=== PATIENT | female | born 1990 | race Caucasian/White ===

== ENCOUNTER 2018-01-28 04:10 | Emergency (ER) | payer OTHER ==
[2018-01-28] MEDS ORDERED: ALBUTEROL NEBULIZED 2.5 MG/3 ML INHALATION STA (04:39)
[2018-01-28] MEDS ORDERED: METOCLOPRAMIDE 5 MG/ML 2 ML VIAL IVP STA (04:39)
[2018-01-28] MEDS ORDERED: ACETAMINOPHEN TAB 500 MG TAB PO STA (04:39)
[2018-01-28] MEDS ORDERED: SODIUM CHLORIDE 0.9% 1,000 ML IV ONE (04:40)
--- NOTE | 2018-01-28 04:55 | ED ---
Fever HPI - General Chief Complaint: Fever Stated Complaint: Fever/Feels Sick Time Seen by Provider: 01/28/18 04:29 Source: patient, RN notes reviewed, old records reviewed Mode of arrival: ambulatory Limitations: no limitations - History of Present Illness Initial Comments: 28-year-old female presents response due to complaint of cough and congestion. She also has had diarrhea and vomiting episodes. She is currently 32 weeks . Patient states that she has no vaginal bleeding. No abdominal pain. Patient reports that she has had had no history of sick contacts that she is aware. Patient states she does frequently visits the soup kitchen. Patient states she may have picked something up there. She reports she's had a significant cough over the past 2 days. - Related Data Previous Rx's Medication Instructions Recorded Ciprofloxacin HCl [Cipro] 500 mg PO Q12HR #20 day 01/22/15 Phenazopyridine [Pyridium] 100 mg PO TID 3 Days day 01/22/15 traMADol HCl [Ultram] 50 mg PO Q6H PRN #40 tab 01/22/15 Acetaminophen Tab [Tylenol Tab] 500 mg PO Q6H #20 tablet 01/28/18 Albuterol Inhaler [Ventolin Hfa 1 - 2 puff INHALATION RT-Q6H PRN 01/28/18 Inhaler] #1 inhaler Amoxicillin 500 mg PO Q12HR #14 cap 01/28/18 Metoclopramide HCl [Reglan] 10 mg PO ACHS #15 tablet 01/28/18 diphenhydrAMINE [Benadryl] 25 mg PO BID PRN #20 capsule 01/28/18 Allergies Allergy/AdvReac Type Severity Reaction Status Date / Time No Known Allergies Allergy Verified 01/28/18 04:15 Review of Systems ROS Statement: Those systems with pertinent positive or pertinent negative responses have been documented in the HPI. ROS Other: All systems not noted in ROS Statement are negative. Past Medical History Past Medical History: No Reported History History of Any Multi-Drug Resistant Organisms: None Reported Past Surgical History: Appendectomy Past Psychological History: No Psychological Hx Reported Smoking Status: Current every day smoker Past Alcohol Use History: Occasional Past Drug Use History: None Reported General Exam - General Exam Comments Initial Comments: 28-year-old female. No significant distress. Limitations: no limitations General appearance: alert, in no apparent distress Head exam: Present: atraumatic, normocephalic, normal inspection Eye exam: Present: normal appearance, PERRL, EOMI. Absent: scleral icterus, conjunctival injection, periorbital swelling ENT exam: Present: normal exam, mucous membranes moist Neck exam: Present: normal inspection. Absent: tenderness, meningismus, lymphadenopathy Respiratory exam: Present: normal lung sounds bilaterally, wheezes. Absent: respiratory distress, rales, rhonchi, stridor Cardiovascular Exam: Present: regular rate, normal rhythm, normal heart sounds. Absent: systolic murmur, diastolic murmur, rubs, gallop, clicks Back exam: Present: normal inspection Neurological exam: Present: alert, oriented X3, CN II-XII intact Psychiatric exam: Present: normal affect, normal mood Course Vital Signs 01/28/18 01/28/18 01/28/18 04:13 04:58 05:11 Temperature 97.5 F L Pulse Rate 94 92 96 Respiratory 20 Rate Blood Pressure 100/62 O2 Sat by Pulse 97 Oximetry Medical Decision Making - Medical Decision Making 28-year-old female, currently 32 weeks presents return today which went cough congestion vomiting episodes. Patient has some oozing exam. Given 2 albuterol treatment. She does have some improvement. I discussed doing a chest x-ray to the for pneumonia. Patient's that she was only do this to exposed baby to radiation. She's had no vomiting episodes and emergency department. Given Tylenol. Reglan and IV fluids due to the vomiting. She does have some mild leukocyte ptosis most likely a reflection of . Urinalysis was negative. She panel unremarkable. This time Patient will be discharged with amoxicillin for upper respiratory infection, Tylenol, albuterol inhaler and Benadryl. Discussed following up with primary care physician. - Lab Data Result diagrams: 01/28/18 04:55 01/28/18 04:55 Lab Results 01/28/18 01/28/18 01/28/18 Range/Units 04:55 04:55 04:55 WBC 15.2 H (3.8-10.6) k/uL RBC 3.56 L (3.80-5.40) m/uL Hgb 11.3 L (11.4-16.0) gm/dL Hct 33.0 L (34.0-46.0) % MCV 92.7 (80.0-100.0) fL MCH 31.7 (25.0-35.0) pg MCHC 34.2 (31.0-37.0) g/dL RDW 12.8 (11.5-15.5) % Plt Count 209 (150-450) k/uL Neutrophils % 82 % Lymphocytes % 10 % Monocytes % 6 % Eosinophils % 1 % Basophils % 0 % Neutrophils # 12.4 H (1.3-7.7) k/uL Lymphocytes # 1.5 (1.0-4.8) k/uL Monocytes # 0.9 (0-1.0) k/uL Eosinophils # 0.2 (0-0.7) k/uL Basophils # 0.0 (0-0.2) k/uL Sodium 136 L (137-145) mmol/L Potassium 4.5 (3.5-5.1) mmol/L Chloride 108 H (98-107) mmol/L Carbon Dioxide 23 (22-30) mmol/L Anion Gap 5 mmol/L BUN 12 (7-17) mg/dL Creatinine 0.55 (0.52-1.04) mg/dL Est GFR (CKD-EPI)AfAm >90 (>60 ml/min/1.73 sqM) Est GFR (CKD-EPI)NonAf >90 (>60 ml/min/1.73 sqM) Glucose 83 (74-99) mg/dL Calcium 8.7 (8.4-10.2) mg/dL Urine Color Yellow Urine Appearance Clear (Clear) Urine pH 6.0 (5.0-8.0) Ur Specific [place] 1.020 (1.001-1.035) Urine Protein Negative (Negative) Urine Glucose (UA) Negative (Negative) Urine Ketones Negative (Negative) Urine Blood Negative (Negative) Urine Nitrite Negative (Negative) Urine Bilirubin Negative (Negative) Urine Urobilinogen <2.0 (<2.0) mg/dL Ur Leukocyte Esterase Small H (Negative) Urine RBC 1 (0-5) /hpf Urine WBC 2 (0-5) /hpf Ur Squamous Epith Cells 5 H (0-4) /hpf Urine Mucus Rare H (None) /hpf Disposition Clinical Impression: Nausea & vomiting, URI (upper respiratory infection), Disposition: HOME SELF-CARE Condition: Good Instructions: Fever in Adults (ED) Additional Instructions: Patient is to take medications as prescribed. Follow-up with primary care physician. Return to the emergency department if any alarming signs or symptoms occur. Prescriptions: Acetaminophen Tab [Tylenol Tab] 500 mg PO Q6H #20 tablet Albuterol Inhaler [Ventolin Hfa Inhaler] 1 - 2 puff INHALATION RT-Q6H PRN #1 inhaler PRN Reason: Shortness Of Breath Amoxicillin 500 mg PO Q12HR #14 cap diphenhydrAMINE [Benadryl] 25 mg PO BID PRN #20 capsule PRN Reason: Congestion Metoclopramide HCl [Reglan] 10 mg PO ACHS #15 tablet Is patient prescribed a controlled substance at d/c from ED?: No Referrals: None,Stated [Primary Care Provider] - 1-2 days Time of Disposition: 05:44
[2018-01-28 05:20] LABS: Appearance,Urine Clear (Clear); Bilirubin,Urine Negative (Negative); Blood,Urine Negative (Negative); Color,Urine Yellow; Glucose,Urine (UA) Negative (Negative); Ketones,Urine Negative (Negative); Leukocyte Esterase,Urine Small (Negative); Mucus,Urine Rare /hpf; Nitrite,Urine Negative (Negative); Protein,Urine Negative (Negative); RBC,Urine 1 /hpf (0-5); Squamous Epithelial Cell,Urine 5 /hpf (0-4); Urobilinogen,Urine <2.0 mg/dL (<2.0); WBC,Urine 2 /hpf (0-5)
[2018-01-28 05:26] LABS: Anion Gap 5 mmol/L; Blood Urea Nitrogen 12 mg/dL (7-17); Calcium 8.7 mg/dL (8.4-10.2); Carbon Dioxide 23 mmol/L (22-30); Chloride 108 mmol/L (98-107); Glucose 83 mg/dL (74-99); Potassium 4.5 mmol/L (3.5-5.1); Sodium 136 mmol/L (137-145)
[2018-01-28 05:37] LABS: Basophils % (A) 0 %; Eosinophils # (A) 0.2 k/uL (0-0.7); Eosinophils % (A) 1 %; HGB 11.3 gm/dL (11.4-16.0); Lymphocytes # (A) 1.5 k/uL (1.0-4.8); Lymphocytes % (A) 10 %; MCH 31.7 pg (25.0-35.0); MCHC 34.2 g/dL (31.0-37.0); MCV 92.7 fL (80.0-100.0); Mean Platelet Volume 7.7; Monocytes # (A) 0.9 k/uL (0-1.0); Monocytes % (A) 6 %; Neutrophils # (A) 12.4 k/uL (1.3-7.7); Neutrophils % (A) 82 %; Platelet Count 209 k/uL (150-450); RBC 3.56 m/uL (3.80-5.40); RDW 12.8 % (11.5-15.5); WBC 15.2 k/uL (3.8-10.6)
[2018-01-28 06:03] VITALS: BP 107/54; PULSE 87; RESP 16; TEMP 98
== END 2018-01-28 06:04 | disposition home or self-care (01) ==
LOC: EC 04:10
DX: O99.513 Diseases of the respiratory system complicating pregnancy, third trimester (principal); J06.9 Acute upper respiratory infection, unspecified; O21.9 Vomiting of pregnancy, unspecified; O99.113 Other diseases of the blood and blood-forming organs and certain disorders involving the immune mechanism complicating pregnancy, third trimester; D72.829 Elevated white blood cell count, unspecified; O99.89 Other specified diseases and conditions complicating pregnancy, childbirth and the puerperium; R19.7 Diarrhea, unspecified; O99.333 Smoking (tobacco) complicating pregnancy, third trimester; F17.200 Nicotine dependence, unspecified, uncomplicated; Z90.49 Acquired absence of other specified parts of digestive tract; Z3A.32 32 weeks gestation of pregnancy
CPT/HCPCS: 36415; 94640; 80048; 85025; 81001; 99284; 96374; 96361; J2765

== ENCOUNTER 2021-02-15 12:00 | Emergency (ER) | payer OTHER ==
[2021-02-15 12:04] VITALS: TEMP 97.8
[2021-02-15] MEDS ORDERED: MORPHINE SULFATE 4 MG/ML SYRINGE IV STA (12:58)
[2021-02-15] MEDS ORDERED: SODIUM CHLORIDE 0.9% 1,000 ML IV STA (12:58)
[2021-02-15] MEDS ORDERED: ONDANSETRON 4 MG/2 ML VIAL IVP STA (13:18)
[2021-02-15 13:28] LABS: Basophils # (A) 0.1 k/uL (0-0.2); Basophils % (A) 1 %; Eosinophils # (A) 0.2 k/uL (0-0.7); Eosinophils % (A) 2 %; HCT 42.7 % (34.0-46.0); HGB 14.2 gm/dL (11.4-16.0); Lymphocytes # (A) 1.7 k/uL (1.0-4.8); Lymphocytes % (A) 19 %; MCHC 33.2 g/dL (31.0-37.0); MCV 93.2 fL (80.0-100.0); Mean Platelet Volume 7.5; Monocytes # (A) 0.5 k/uL (0-1.0); Monocytes % (A) 5 %; Neutrophils # (A) 6.2 k/uL (1.3-7.7); Neutrophils % (A) 71 %; Platelet Count 281 k/uL (150-450); RBC 4.58 m/uL (3.80-5.40); RDW 13.1 % (11.5-15.5); WBC 8.8 k/uL (3.8-10.6)
--- NOTE | 2021-02-15 13:32 | ED ---
General Adult HPI - General Chief complaint: Abdominal Pain Stated complaint: abd pain Time Seen by Provider: 02/15/21 12:06 Source: patient, RN notes reviewed, old records reviewed Mode of arrival: ambulatory Limitations: no limitations - History of Present Illness Initial comments: Patient is a 31-year-old female with past medical history is unremarkable currently on control presents emergency Department complaining of lower abdominal pain. Patient recent unprotected sex inserted noticing a yellowish vaginal discharge since yesterday. She denies dysuria. Denies hematuria. States she is not currently on her period. States she does have a history of ovarian cysts. Last known period was approximately one month ago. Denies any other complaints including chest pain, shortness breath, fevers, chills, cough. States she is having normal bowel movements, passing flatus, and denies any nausea or vomiting. She presents to the emergency department over concern for lower abdominal pain which she describes as achy, in bilateral lower quadrants. It does not radiate. It is been there for 2 days.I evaluated the patient when she was placed in a room. - Related Data Previous Rx's Medication Instructions Recorded Ciprofloxacin HCl [Cipro] 500 mg PO Q12HR #20 day 01/22/15 Phenazopyridine [Pyridium] 100 mg PO TID 3 Days day 01/22/15 traMADol HCl [Ultram] 50 mg PO Q6H PRN #40 tab 01/22/15 Acetaminophen Tab [Tylenol Tab] 500 mg PO Q6H #20 tablet 01/28/18 Albuterol Inhaler (Mhu) [Ventolin 1 - 2 puff INHALATION RT-Q6H PRN 01/28/18 Hfa Inhaler (Mhu)] #1 inhaler Amoxicillin 500 mg PO Q12HR #14 cap 01/28/18 Metoclopramide HCl [Reglan] 10 mg PO ACHS #15 tablet 01/28/18 diphenhydrAMINE [Benadryl] 25 mg PO BID PRN #20 capsule 01/28/18 Doxycycline Hyclate 100 mg PO Q12H 14 Days #28 tab 02/15/21 metroNIDAZOLE [Flagyl] 500 mg PO BID 14 Days #28 tab 02/15/21 Allergies Allergy/AdvReac Type Severity Reaction Status Date / Time No Known Allergies Allergy Verified 02/15/21 12:04 Review of Systems ROS Statement: Those systems with pertinent positive or pertinent negative responses have been documented in the HPI. Review of Systems: CONST: Denies fever EYES: Denies blurry vision ENT: Denies nasal congestion C/V: Denies Chest pain RESP: Denies shortness of breath GI: Endorses abdominal pain : Endorses vaginal discharge. SKIN: Denies rash. MSK: Denies joint pain. NEURO: Denies headache ROS Other: All systems not noted in ROS Statement are negative. Past Medical History Past Medical History: No Reported History History of Any Multi-Drug Resistant Organisms: None Reported Past Surgical History: Appendectomy Past Psychological History: Anxiety, PTSD Smoking Status: Current every day smoker Past Alcohol Use History: Occasional Past Drug Use History: None Reported General Exam - General Exam Comments Initial Comments: General: Appears in no acute distress. HEAD: Normal with no signs of head trauma. EYES: PERRLA, EOMI, conjunctiva normal, no discharge. ENT: Hearing grossly intact, normal oropharynx. RESPIRATORY: Clear breath sounds bilaterally. No wheezes, rales, or rhonchi. C/V: Regular rate and rhythm. S1 and S2 auscultated, no edema, peripheral pulses 2+ and intact throughout ABD: Abdomen is soft, nondistended. Patient sent to palpation primarily in the suprapubic region in the lower abdomen. No guarding. No peritoneal signs. No rebound tenderness. EXT: Normal range of motion, no obvious deformity SKIN: No rashes or lesions observed on exposed skin. NEURO: Alert and oriented 4. Limitations: no limitations Course Vital Signs 02/15/21 12 12:01 15:19 Temperature 97.8 F Pulse Rate 78 88 Respiratory 17 18 Rate Blood Pressure 117/77 128/89 O2 Sat by Pulse 99 99 Oximetry Medical Decision Making - Medical Decision Making Based on the patient's presentation and physical exam, I'm concerned for possible intra-abdominal process for current symptoms. Cannot rule out possible torsion with a history of ovarian cysts and therefore we will obtain an ultrasound to rule out ovarian torsion. Abdominal laboratory studies also be obtained. Urinalysis and thinks test will be obtained. I do believe she requires a pelvic exam to evaluate for a since of STDs or pelvic inflammatory disease. She was in agreement this plan. She'll likely require antibiotics. She will be given 1 L fluid bolus, IV Zofran and morphine. Patient's laboratory studies were remarkable for a suspected UTI, however was a contaminated catch. She is trichomonas positive on swabs from [facility] exam. Chlamydia and gonorrhea are still pending at this time. Remainder the labs are unremarkable. She is not . Transvaginal ultrasound revealed a right ovarian cyst with no signs of ovarian torsion. Pelvic exam was completed by in assisting mid-level provider, and revealed mild cervical erythema with a milky white vaginal discharge as well as yeast appearing discharge. Bimanual exam revealed significant cervical motion tenderness but no adnexal tenderness. Cultures were collected and sent as described above. I discussed with the patient that she is likely experiencing pelvic inflammatory disease from her STI infection. She was in agreement. Patient will be treated with IV 1 g Rocephin, as well as Doxy cyclizine as well as fluconazole one-time dose and Flagyl 500 mg. She'll be given prescriptions for 14 days of doxycycline twice a day as well as 14 days of Flagyl twice a day. Patient was in agreement this plan. She is tolerating by mouth intake and feels improved at this time. I will provide her with follow-up with [facility]. I will provide the patient with a prescription for doxycycline, Flagyl. I instructed the patient to follow up with their PCP in the next 3 days. I provided contact information for follow up with [facility]. I explained that the patient should return to the emergency department if they experience any worsening symptoms. Strict return precautions were discussed with the patient. The patient expressed understanding of these instructions. I answered all questions that the patient had. The patient was discharged home in fair condition with their prescriptions and follow up information. - Lab Data Result diagrams: 02/15/21 13:17 02/15/21 13:17 Lab Results 02/15/21 02/15/21 02/15/21 Range/Units 13:17 13:17 13:17 WBC 8.8 (3.8-10.6) k/uL RBC 4.58 (3.80-5.40) m/uL Hgb 14.2 (11.4-16.0) gm/dL Hct 42.7 (34.0-46.0) % MCV 93.2 (80.0-100.0) fL MCH 31.0 (25.0-35.0) pg MCHC 33.2 (31.0-37.0) g/dL RDW 13.1 (11.5-15.5) % Plt Count 281 (150-450) k/uL MPV 7.5 Neutrophils % 71 % Lymphocytes % 19 % Monocytes % 5 % Eosinophils % 2 % Basophils % 1 % Neutrophils # 6.2 (1.3-7.7) k/uL Lymphocytes # 1.7 (1.0-4.8) k/uL Monocytes # 0.5 (0-1.0) k/uL Eosinophils # 0.2 (0-0.7) k/uL Basophils # 0.1 (0-0.2) k/uL Sodium (137-145) mmol/L Potassium (3.5-5.1) mmol/L Chloride (98-107) mmol/L Carbon Dioxide (22-30) mmol/L Anion Gap mmol/L BUN (7-17) mg/dL Creatinine (0.52-1.04) mg/dL Est GFR (CKD-EPI)AfAm (>60 ml/min/1.73 sqM) Est GFR (CKD-EPI)NonAf (>60 ml/min/1.73 sqM) Glucose (74-99) mg/dL Calcium (8.4-10.2) mg/dL Total Bilirubin (0.2-1.3) mg/dL AST (14-36) U/L ALT (4-34) U/L Alkaline Phosphatase (38-126) U/L Total Protein (6.3-8.2) g/dL Albumin (3.5-5.0) g/dL Amylase (30-110) U/L Lipase (23-300) U/L Urine Color Yellow Urine Appearance Cloudy H (Clear) Urine pH 5.5 (5.0-8.0) Ur Specific [place] 1.026 (1.001-1.035) Urine Protein 1+ H (Negative) Urine Glucose (UA) Negative (Negative) Urine Ketones Negative (Negative) Urine Blood Moderate H (Negative) Urine Nitrite Negative (Negative) Urine Bilirubin Negative (Negative) Urine Urobilinogen 2.0 (<2.0) mg/dL Ur Leukocyte Esterase Large H (Negative) Urine RBC 13 H (0-5) /hpf Urine WBC 46 H (0-5) /hpf Ur Squamous Epith Cells 6 H (0-4) /hpf Urine Bacteria Rare H (None) /hpf Cellular Casts 4 (0) /lpf Hyaline Casts 6 H (0-2) /lpf Urine Mucus Many H (None) /hpf Urine HCG, Qual Not Detected (Not Detectd) Trichomonas Ag (Rapid) (Negative) 02/15/21 02/15/21 Range/Units 13:17 Unknown WBC (3.8-10.6) k/uL RBC (3.80-5.40) m/uL Hgb (11.4-16.0) gm/dL Hct (34.0-46.0) % MCV (80.0-100.0) fL MCH (25.0-35.0) pg MCHC (31.0-37.0) g/dL RDW (11.5-15.5) % Plt Count (150-450) k/uL MPV Neutrophils % % Lymphocytes % % Monocytes % % Eosinophils % % Basophils % % Neutrophils # (1.3-7.7) k/uL Lymphocytes # (1.0-4.8) k/uL Monocytes # (0-1.0) k/uL Eosinophils # (0-0.7) k/uL Basophils # (0-0.2) k/uL Sodium 136 L (137-145) mmol/L Potassium 3.8 (3.5-5.1) mmol/L Chloride 101 (98-107) mmol/L Carbon Dioxide 23 (22-30) mmol/L Anion Gap 12 mmol/L BUN 11 (7-17) mg/dL Creatinine 0.77 (0.52-1.04) mg/dL Est GFR (CKD-EPI)AfAm >90 (>60 ml/min/1.73 sqM) Est GFR (CKD-EPI)NonAf >90 (>60 ml/min/1.73 sqM) Glucose 94 (74-99) mg/dL Calcium 9.4 (8.4-10.2) mg/dL Total Bilirubin 0.5 (0.2-1.3) mg/dL AST 20 (14-36) U/L ALT 14 (4-34) U/L Alkaline Phosphatase 89 (38-126) U/L Total Protein 7.3 (6.3-8.2) g/dL Albumin 4.2 (3.5-5.0) g/dL Amylase 54 (30-110) U/L Lipase 61 (23-300) U/L Urine Color Urine Appearance (Clear) Urine pH (5.0-8.0) Ur Specific [place] (1.001-1.035) Urine Protein (Negative) Urine Glucose (UA) (Negative) Urine Ketones (Negative) Urine Blood (Negative) Urine Nitrite (Negative) Urine Bilirubin (Negative) Urine Urobilinogen (<2.0) mg/dL Ur Leukocyte Esterase (Negative) Urine RBC (0-5) /hpf Urine WBC (0-5) /hpf Ur Squamous Epith Cells (0-4) /hpf Urine Bacteria (None) /hpf Cellular Casts (0) /lpf Hyaline Casts (0-2) /lpf Urine Mucus (None) /hpf Urine HCG, Qual (Not Detectd) Trichomonas Ag (Rapid) Positive H (Negative) Disposition Clinical Impression: Pelvic inflammatory disease, STI (sexually transmitted infection) Disposition: HOME SELF-CARE Condition: Fair Instructions (If sedation given, give patient instructions): Pelvic Inflammatory Disease (ED) Prescriptions: Doxycycline Hyclate 100 mg PO Q12H 14 Days #28 tab metroNIDAZOLE [Flagyl] 500 mg PO BID 14 Days #28 tab Is patient prescribed a controlled substance at d/c from ED?: No Referrals: None,Stated [Primary Care Provider] - 1-2 days Michael Rockwell MD [STAFF PHYSICIAN] - 1-2 days
[2021-02-15 13:38] LABS: ALT 14 U/L (4-34); AST 20 U/L (14-36); African American GFR (CKD) >90 (>60 ml/min/1.73 sqM); Albumin 4.2 g/dL (3.5-5.0); Alkaline Phosphatase 89 U/L (38-126); Amylase 54 U/L (30-110); Anion Gap 12 mmol/L; Blood Urea Nitrogen 11 mg/dL (7-17); Calcium 9.4 mg/dL (8.4-10.2); Carbon Dioxide 23 mmol/L (22-30); Chloride 101 mmol/L (98-107); Glucose 94 mg/dL (74-99); Lipase 61 U/L (23-300); Non-African American GFR(CKD) >90 (>60 ml/min/1.73 sqM); Potassium 3.8 mmol/L (3.5-5.1); Sodium 136 mmol/L (137-145); Total Bilirubin 0.5 mg/dL (0.2-1.3); Total Protein 7.3 g/dL (6.3-8.2)
[2021-02-15 13:48] LABS: Appearance,Urine Cloudy (Clear); Bacteria,Urine Rare /hpf; Bilirubin,Urine Negative (Negative); Blood,Urine Moderate (Negative); Cellular Casts,Urine 4 /lpf (0); Color,Urine Yellow; Glucose,Urine (UA) Negative (Negative); Hyaline Casts,Urine 6 /lpf (0-2); Ketones,Urine Negative (Negative); Leukocyte Esterase,Urine Large (Negative); Mucus,Urine Many /hpf; Nitrite,Urine Negative (Negative); PH, Urine 5.5 (5.0-8.0); Protein,Urine 1+ (Negative); RBC,Urine 13 /hpf (0-5); Specific Gravity,Urine 1.026 (1.001-1.035); Squamous Epithelial Cell,Urine 6 /hpf (0-4); WBC,Urine 46 /hpf (0-5)
[2021-02-15] MEDS ORDERED: DOXYCYCLINE 100 MG CAP PO STA (14:03)
[2021-02-15] MEDS ORDERED: metroNIDAZOLE 500 MG TAB PO STA (14:03)
[2021-02-15] MEDS ORDERED: FLUCONAZOLE 100 MG TAB PO ONE (14:03)
[2021-02-15] MEDS ORDERED: cefTRIAXone IN SWFI 1,000 MG/10 ML SYRINGE IVP STA (14:03)
--- NOTE | 2021-02-15 14:39 | US ---
EXAMINATION TYPE: US transvaginal DATE OF EXAM: 02/15/2021 COMPARISON: NONE CLINICAL HISTORY: evaluate for torsion. lower abd pain. TECHNIQUE: Transvaginal (TV). Date of LMP: 01-23-21 EXAM MEASUREMENTS: Uterus: 8.3x 3.8 x 4.3 cm Endometrial Stripe: 0.3 cm Right Ovary: 3.8 x 2.0 x 1.7 cm Left Ovary: 2.5 x 1.3 x 1.4 cm 1. Uterus: Anteverted wnl 2. Endometrium: wnl 3. Right Ovary: debris filled cyst measuring 1.9 x 1.1 x 1.1cm 4. Left Ovary: wnl Spectral, color and waveform doppler imaging shows good arterial and venous flow within the ovaries ; there is no evidence for ovarian torsion. 5. Bilateral Adnexa: wnl 6. Posterior cul-de-sac: minimal free fluid IMPRESSION: There is complex small right ovarian cyst. Normal uterus. No evidence of ovarian torsion. Tiny amount of free fluid in the cul-de-sac could be physiologic.
[2021-02-15 15:20] VITALS: BP 128/89; PULSE 88; RESP 18
[2021-02-17 15:08] LABS: C. trachomatis,PCR Negative (Neg,Equiv); Chlamydia trachomatis Source Cervix; N. gonorrhoeae,PCR Positive (Neg,Equiv); Neisseria Source Cervix
== END 2021-02-15 15:20 | disposition home or self-care (01) ==
LOC: EC 12:00
DX: N73.9 Female pelvic inflammatory disease, unspecified (principal); A64 Unspecified sexually transmitted disease; F17.200 Nicotine dependence, unspecified, uncomplicated
CPT/HCPCS: 36415; 80053; 82150; 83690; 85025; 81001; 81025; 87808; 87491; 87591; 87086; 93975; 76830; 99284; 96374; 96375; J2270; J2405; J0696